=== PATIENT | female | born 1980 | race Two or more races ===

== ENCOUNTER 2019-09-22 18:02 | Emergency (ER) | payer SELFPAY ==
[~2019-09-22] VITALS: Ht 149.9 cm; Wt 67.6 kg
[2019-09-22 18:20] VITALS: BP 117/74
== END 2019-09-22 19:29 | disposition home or self-care (01) ==
LOC: ER 18:05
DX: B34.9 Viral infection, unspecified (principal); J45.909 Unspecified asthma, uncomplicated

== ENCOUNTER 2019-09-26 06:19 | Emergency (ER) | payer SELFPAY ==
[~2019-09-26] VITALS: Ht 149.9 cm; Wt 68.9 kg
--- NOTE | 2019-09-26 06:20 | NUR ---
PT BIBSELF C/C N/V X4DAYS, +COUGH, HEADACHE AND L EAR PAIN X5DAYS. PT AOX4. NAD NOTED. RESP EVEN AND UNLABORED. PT ABLE TO PROVIDE URINE AT THIS TIME. PT ON MONITOR IN BED 10. WILL CONTINUE TO MONITOR.
--- NOTE | 2019-09-26 06:46 | NUR ---
AT BEDSIDE FOR EVAL
[2019-09-26] MEDS ORDERED: LIDOCAINE VISCOUS 2% UD 15 ML UDC MM ONE (07:00)
[2019-09-26] MEDS ORDERED: ACETAMINOPHEN ES 500 MG TABLET PO ONE (07:00)
[2019-09-26] MEDS ORDERED: KETOROLAC TROMETHAMINE INJ 30 MG/ML VIAL IM ONE (07:00)
[2019-09-26] MEDS ORDERED: ACETAMINOPHEN ES 500 MG TABLET ONE (07:01)
[2019-09-26] MEDS ORDERED: KETOROLAC TROMETHAMINE INJ 30 MG/ML VIAL ONE (07:01)
[2019-09-26] MEDS ORDERED: LIDOCAINE VISCOUS 2% UD 15 ML UDC ONE (07:01)
[2019-09-26 07:10] LABS: APPEARANCE,URINE CLEAR (CLEAR); BILIRUBIN,URINE NEGATIVE (NEGATIVE); BLOOD, URINE NEGATIVE Ery/uL (NEGATIVE); COLOR,URINE YELLOW (YELLOW); KETONES,URINE NEGATIVE (NEGATIVE); LEUKOCYTE ESTERASE ,URINE NEGATIVE (NEGATIVE); NITRITE, URINE NEGATIVE (NEGATIVE); PROTEIN,URINE 100 mg/dl (NEGATIVE); UGLUCOSE NEGATIVE (NEGATIVE); UROBILINOGEN,URINE 0.2 EU/dL (0.2)
--- NOTE | 2019-09-26 07:20 | NUR ---
report received from moises PLASCENCIA for renee
--- NOTE | 2019-09-26 07:20 | NUR ---
X RAY AT THE BED SIDE
--- NOTE | 2019-09-26 07:59 | NUR ---
Patient discharged to home in stable condition. Written and verbal after care instructions given. Patient verbalizes understanding of instruction. ambulatory steady gait. Addendum: 09/26/19 at 0759 by [employer] provided with work note per pt request
[2019-09-26 08:00] VITALS: BP 117/78
== END 2019-09-26 08:01 | disposition home or self-care (01) ==
LOC: ER 06:20
DX: J06.9 Acute upper respiratory infection, unspecified (principal); R11.10 Vomiting, unspecified; R51 Headache; J45.909 Unspecified asthma, uncomplicated
CPT/HCPCS: 71046; 81001; 84703; 96372; 99284; J1885; 81000-TC

== ENCOUNTER 2020-03-07 17:15 | Emergency (ER) | payer SELFPAY ==
[~2020-03-07] VITALS: Ht 152.4 cm; Wt 68.9 kg
[2020-03-07 17:54] VITALS: BP 121/84
[2020-03-07] MEDS ORDERED: ONDANSETRON 4 MG TAB.RAPDIS ONE (18:41)
[2020-03-07] MEDS ORDERED: IBUPROFEN 400 MG TABLET ONE (18:41)
[2020-03-07] MEDS ORDERED: HYDROCODONE/APAP 10/325MG 1 EA TABLET ONE (18:41)
[2020-03-07] MEDS ORDERED: PENICILLIN V POTASSIUM 500 MG TABLET PO ONE ×2 (18:41→19:00)
[2020-03-07] MEDS ORDERED: ONDANSETRON 4 MG TAB.RAPDIS SL ONE (19:00)
[2020-03-07] MEDS ORDERED: IBUPROFEN 400 MG TABLET PO ONE (19:00)
[2020-03-07] MEDS ORDERED: HYDROCODONE/APAP 10/325MG 1 EA TABLET PO ONE (19:00)
== END 2020-03-07 18:51 | disposition home or self-care (01) ==
LOC: ER 17:17
DX: K08.89 Other specified disorders of teeth and supporting structures (principal); J45.909 Unspecified asthma, uncomplicated
CPT/HCPCS: 99284; Q0162

== ENCOUNTER 2021-04-02 17:43 | Emergency (ER) | payer MEDICAID ==
[~2021-04-02] VITALS: Ht 149.9 cm; Wt 71.2 kg
[2021-04-02 18:29] VITALS: BP 104/69
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
--- NOTE | 2021-04-02 19:38 | NUR ---
Patient discharged to home in stable condition. Written and verbal after care instructions given. Patient verbalizes understanding of instruction. Pt ambulatory with a steady gait
== END 2021-04-02 19:39 | disposition home or self-care (01) ==
LOC: ER 17:47
DX: S16.1XXA Strain of muscle, fascia and tendon at neck level, initial encounter (principal); S09.8XXA Other specified injuries of head, initial encounter; J45.909 Unspecified asthma, uncomplicated; V49.49XA Driver injured in collision with other motor vehicles in traffic accident, initial encounter; Y93.89 Activity, other specified; Y92.413 State road as the place of occurrence of the external cause; Y99.8 Other external cause status

== ENCOUNTER 2022-04-11 17:36 | Emergency (ER) | payer MEDICAID ==
[~2022-04-11] VITALS: Ht 149.9 cm; Wt 70.3 kg
[2022-04-11 17:47] VITALS: BP 132/92
--- NOTE | 2022-04-11 18:30 | NUR ---
CALLED TO ROOM-IN,NO ANSWER
--- NOTE | 2022-04-11 18:50 | NUR ---
CALLED TO ROOM-IN,NO ANSWER
--- NOTE | 2022-04-11 19:00 | NUR ---
CALLED TO ROOM IN,NO ANSWER
--- NOTE | 2022-04-11 20:06 | NUR ---
PATIENT LEFT AFTER BEING TRIAGED
== END 2022-04-11 20:07 | disposition left against medical advice (07) ==
LOC: ER 17:51
DX: Z53.21 Procedure and treatment not carried out due to patient leaving prior to being seen by health care provider (principal)

== ENCOUNTER 2022-11-09 17:22 | Emergency (ER) | payer MEDICAID ==
[~2022-11-09] VITALS: Ht 157.5 cm; Wt 69.9 kg
--- NOTE | 2022-11-09 18:21 | NUR ---
When iv was put in pt would move arm and iv would come out. Pt said she does not want an iv Let know
[2022-11-09 18:58] LABS: CALCIUM, SERUM 8.9 mg/dL (8.5-10.1); CARBON DIOXIDE 25 mmol/L (21-32); CHLORIDE 107 mmol/L (98-107); GLUCOSE 104 mg/dL (74-106); POTASSIUM 4.1 mmol/L (3.5-5.1); SODIUM SERUM 139 mmol/L (136-145); UREA NITROGEN, BLOOD 44 mg/dL (7-18)
[2022-11-09] MEDS ORDERED: LORAZEPAM 1 MG TABLET PO ONE (19:00)
[2022-11-09] MEDS ORDERED: LORAZEPAM 1 MG TABLET ONE (19:03)
--- NOTE | 2022-11-09 19:15 | NUR ---
Pt in bed with call light within reach. Able to answer questions. No signs of distress noted.
[2022-11-09 19:51] LABS: BASOPHILS # (AUTO) 0.1 K/uL (0.0-0.2); BASOPHILS % (AUTO) 0.7 % (0.0-2.0); EOSINOPHILS % (AUTO) 2.9 % (0.0-6.0); HEMATOCRIT 34 % (33-45); HEMOGLOBIN 11.1 g/dL (11.5-14.8); LYMPHOCYTES # (AUTO) 3.3 K/uL (0.8-4.8); LYMPHOCYTES % (AUTO) 35.3 % (20.0-44.0); MEAN CORPUSCULAR HGB CONC 33 g/dl (31.0-36.0); MEAN CORPUSCULAR VOLUME 89 fL (82-100); MONOCYTES # (AUTO) 0.7 K/uL (0.1-1.30); MONOCYTES % (AUTO) 7.1 % (2.0-12.0); NEUTROPHILS # (AUTO) 5.1 K/uL (1.8-8.9); PLATELET COUNT (AUTO) 296 K/uL (150-450); RED BLOOD CELL COUNT(AUTO) 3.79 MIL/uL (4.0-5.2); WHITE BLOOD COUNT (AUTO) 9.5 K/uL (4.3-11.0)
[2022-11-09] MEDS ORDERED: LORA-259 PO (20:12)
--- NOTE | 2022-11-09 20:43 | NUR ---
Patient discharged to home in stable condition. Written and verbal after care instructions given. Patient verbalizes understanding of instruction.
[2022-11-09 20:44] VITALS: BP 105/77
== END 2022-11-09 20:44 | disposition home or self-care (01) ==
LOC: ER 17:37
DX: F41.0 Panic disorder [episodic paroxysmal anxiety] (principal); J45.909 Unspecified asthma, uncomplicated; N28.9 Disorder of kidney and ureter, unspecified; R74.8 Abnormal levels of other serum enzymes; D64.9 Anemia, unspecified; Z79.899 Other long term (current) drug therapy
CPT/HCPCS: 36415; 71045-TC; 80048-TC; 84484-TC; 85025-TC

== ENCOUNTER 2022-12-28 10:13 | Emergency (ER) | payer MEDICAID ==
[~2022-12-28] VITALS: Ht 157.5 cm; Wt 69.4 kg
[~2022-12-28 10:13] MED LIST: LORA-259 PO
--- NOTE | 2022-12-28 10:40 | NUR ---
dr. guerrero at bedside
[2022-12-28] MEDS ORDERED: KETOROLAC TROMETHAMINE INJ 30 MG/ML VIAL IV ONE (11:00)
[2022-12-28] MEDS ORDERED: METOCLOPRAMIDE HCL 10 MG/2 ML VIAL IV ONE (11:00)
[2022-12-28] MEDS ORDERED: IV NS 0.9% 1,000 ML IV ONE (11:00)
[2022-12-28] MEDS ORDERED: diphenhydrAMINE HCL 50 MG/ML VIAL IV ONE (11:00)
[2022-12-28] MEDS ORDERED: IBUP-1955 PO (11:02)
--- NOTE | 2022-12-28 11:15 | NUR ---
Patient verbalized "i am not ".
[2022-12-28] MEDS ORDERED: diphenhydrAMINE HCL 50 MG/ML VIAL ONE (11:25)
[2022-12-28] MEDS ORDERED: KETOROLAC TROMETHAMINE 15 MG/ML VIAL ONE (11:25)
[2022-12-28] MEDS ORDERED: METOCLOPRAMIDE HCL 10 MG/2 ML VIAL ONE (11:25)
[2022-12-28 12:03] VITALS: BP 125/70
== END 2022-12-28 12:04 | disposition home or self-care (01) ==
LOC: ER 10:18
DX: R51.9 Headache, unspecified (principal); J45.909 Unspecified asthma, uncomplicated; F41.9 Anxiety disorder, unspecified
CPT/HCPCS: 99284; 96374; 96375; 96361; J1200; J2765; J7030; J1885

== ENCOUNTER 2023-01-24 14:14 | Emergency (ER) | payer MEDICAID ==
[~2023-01-24] VITALS: Ht 149.9 cm; Wt 64.9 kg
[~2023-01-24 14:14] MED LIST changes: +IBUP-1955 PO
--- NOTE | 2023-01-24 14:20 | NUR ---
RECEIVED PT 42 YRS FEMALE CAME FROM HOME C/O LOWER BACK PAIN MOVING ALL EXTRAMITY NO WEEKNESS NO NUBNESS
--- NOTE | 2023-01-24 15:40 | NUR ---
INSERTED ANGO CATHETER G 20 ON RT AC BLOOD JOSAFAT AND SENT TO LAB
--- NOTE | 2023-01-24 15:54 | NUR ---
ABDOMINAL US DONE AT BED SIDE
[2023-01-24 16:09] LABS: BASOPHILS % (AUTO) 0.5 % (0.0-2.0); EOSINOPHILS % (AUTO) 1.1 % (0.0-6.0); HEMATOCRIT 38 % (33-45); HEMOGLOBIN 12.8 g/dL (11.5-14.8); LYMPHOCYTES # (AUTO) 2.1 K/uL (0.8-4.8); LYMPHOCYTES % (AUTO) 28.5 % (20.0-44.0); MEAN CORPUSCULAR HGB CONC 33 g/dl (31.0-36.0); MEAN CORPUSCULAR VOLUME 88 fL (82-100); MONOCYTES # (AUTO) 0.4 K/uL (0.1-1.30); MONOCYTES % (AUTO) 5.1 % (2.0-12.0); NEUTROPHILS # (AUTO) 4.9 K/uL (1.8-8.9); NEUTROPHILS % (AUTO) 64.8 % (43.0-81.0); PLATELET COUNT (AUTO) 238 K/uL (150-450); RED BLOOD CELL COUNT(AUTO) 4.37 MIL/uL (4.0-5.2); WHITE BLOOD COUNT (AUTO) 7.5 K/uL (4.3-11.0)
[2023-01-24 16:16] LABS: CALCIUM, SERUM 9.8 mg/dL (8.5-10.1); CREATININE 1.7 mg/dL (0.6-1.3); POTASSIUM 4.1 mmol/L (3.5-5.1)
[2023-01-24] MEDS ORDERED: HYDROCODONE/APAP 10/325MG TABLET ONE (16:22)
[2023-01-24] MEDS ORDERED: HYDROCODONE/APAP 10/325MG TABLET PO ONE (16:30)
[2023-01-24 17:59] LABS: BILIRUBIN,URINE NEGATIVE (NEGATIVE); COLOR,URINE YELLOW (YELLOW); LEUKOCYTE ESTERASE ,URINE NEGATIVE (NEGATIVE); NITRITE, URINE NEGATIVE (NEGATIVE); PROTEIN,URINE 1+ mg/dl (NEGATIVE); UGLUCOSE NEGATIVE (NEGATIVE); UROBILINOGEN,URINE 0.2 EU/dL (0.2)
[2023-01-24 18:27] LABS: BACTERIA,URINE Few /HPF (None Seen); SQUAMOUS EPITHELIAL CELL,UR Rare /HPF (None Seen); WBC,URINE NONE SEEN /HPF (0-3)
--- NOTE | 2023-01-24 18:30 | NUR ---
Updated with aware of plan of care
[2023-01-24] MEDS ORDERED: CYCL10TA9 PO (19:31)
--- NOTE | 2023-01-24 19:39 | NUR ---
Patient discharged to home in stable condition. Written and verbal after care instructions given. Patient verbalizes understanding of instruction. IV removed. Catheter intact and site benign. Pressure and 4x4 applied to site. No bleeding noted.
[2023-01-24 21:16] VITALS: BP 119/72
== END 2023-01-24 19:40 | disposition home or self-care (01) ==
LOC: ER 14:24
DX: M54.50 Low back pain, unspecified (principal); J45.909 Unspecified asthma, uncomplicated; F41.9 Anxiety disorder, unspecified; Z79.899 Other long term (current) drug therapy
CPT/HCPCS: 36415; 76770-TC; 80048-TC; 81001; 84703-TC; 85025-TC

== ENCOUNTER 2023-02-01 18:09 | Emergency (ER) | payer MEDICAID ==
[~2023-02-01] VITALS: Ht 149.9 cm; Wt 64.0 kg
[~2023-02-01 18:09] MED LIST changes: +CYCL10TA9 PO
--- NOTE | 2023-02-01 18:15 | NUR ---
RECEVED PT 42 YRS FEMALE CAME FROM HOME C/O LT CHEST AND BREAST PAIN X 4 DAYS DINESES SOB
--- NOTE | 2023-02-01 18:35 | NUR ---
Female (Richard PLASCENCIA) molded frames assembler accompanied female patient for (BREAST EXMIN )AT BED SIDE WITH ORACLE TECHNICAL DEVELOPER ABELARDO PLASCENCIA NO REDNESS NO DIFFORMITY OR DRANING
--- NOTE | 2023-02-01 19:30 | NUR ---
Blood drow at bed side BY LAB TACH
--- NOTE | 2023-02-01 19:33 | NUR ---
HAND OFF POUL RN
--- NOTE | 2023-02-01 19:40 | NUR ---
LAB AT BEDSIDE
[2023-02-01 19:59] LABS: BASOPHILS # (AUTO) 0.1 K/uL (0.0-0.2); BASOPHILS % (AUTO) 1.6 % (0.0-2.0); EOSINOPHILS % (AUTO) 2.1 % (0.0-6.0); HEMATOCRIT 36 % (33-45); HEMOGLOBIN 11.9 g/dL (11.5-14.8); LYMPHOCYTES # (AUTO) 2.4 K/uL (0.8-4.8); LYMPHOCYTES % (AUTO) 33.1 % (20.0-44.0); MEAN CORPUSCULAR HGB CONC 33 g/dl (31.0-36.0); MEAN CORPUSCULAR VOLUME 90 fL (82-100); MONOCYTES # (AUTO) 0.5 K/uL (0.1-1.30); MONOCYTES % (AUTO) 7.4 % (2.0-12.0); NEUTROPHILS # (AUTO) 4.1 K/uL (1.8-8.9); NEUTROPHILS % (AUTO) 55.8 % (43.0-81.0); PLATELET COUNT (AUTO) 240 K/uL (150-450); RED BLOOD CELL COUNT(AUTO) 4.01 MIL/uL (4.0-5.2); WHITE BLOOD COUNT (AUTO) 7.3 K/uL (4.3-11.0)
[2023-02-01 20:09] LABS: CALCIUM, SERUM 9.5 mg/dL (8.5-10.1); CREATININE 1.8 mg/dL (0.6-1.3); POTASSIUM 4.2 mmol/L (3.5-5.1)
[2023-02-01] MEDS ORDERED: ACETAMINOPHEN ES 500 MG TABLET ONE (21:59)
[2023-02-01] MEDS: ACETAMINOPHEN 325 MG TABLET PO ONE (22:02)
[2023-02-01 22:14] VITALS: BP 119/87
== END 2023-02-01 22:17 | disposition home or self-care (01) ==
LOC: ER 18:11
DX: N18.9 Chronic kidney disease, unspecified (principal); N64.4 Mastodynia; F41.9 Anxiety disorder, unspecified
CPT/HCPCS: 36415; 71045-TC; 76642-LT-TC; 80048-TC; 84484-TC; 85025-TC